=== PATIENT | male | born 1980 | race Caucasian/White ===

== ENCOUNTER 2018-09-14 13:04 | Outpatient (CLI) | payer OTHER ==
--- NOTE | 2018-09-14 15:31 | MRI ---
MRI LUMBAR SPINE WITHOUT CONTRAST: Date: 09/14/18 HISTORY: Acute left lumbar radiculopathy, low back pain, and left leg numbness. FINDINGS: The vertebral body heights and marrow signal are maintained. The conus medullaris ends at L1. There i s disc desiccation at L4-5 and L5-S1 levels with broad based disc bulges. There is increased T2 signa l in the posterior aspect of the L4-5 and L5-S1 disc consistent with annular tears. There is Grade I anterolisthesis of L5 over S1. There is moderate to severe left-sided neural foraminal stenosis at L5 -S1 with probable impingement of the exiting left nerve root at L5-S1. There are facet hypertrophic c hanges at L4-5 and L5-S1 levels. The paraspinal musculature is normal. IMPRESSION: 1. Degenerative disc disease with broad based disc bulges at L4-5 and L5-S1 levels, and associated a nnular tears. 2. Grade I anterolisthesis of L5-S1 level with bilateral neural foraminal stenosis, left greater jose n right, with probable impingement of the exiting left nerve root. POS: [facility]
== END 2018-09-14 13:05 | disposition home or self-care (01) ==
LOC: BICMRI 13:04
PROVIDERS: ATTEND General Practice
DX: M51.16 Intervertebral disc disorders with radiculopathy, lumbar region (principal); M51.17 Intervertebral disc disorders with radiculopathy, lumbosacral region; M48.061 Spinal stenosis, lumbar region without neurogenic claudication
CPT/HCPCS: 72148

== ENCOUNTER 2018-12-13 15:18 | Outpatient (CLI) | payer OTHER ==
--- NOTE | 2018-12-13 19:30 | RAD ---
XR Lumbar Spine Min 4 View History: [Left leg and back pain. M [age]] Comparison: MRI lumbar spine September 14, 2018 Findings: There is acute fracture. 5 nonrib-bearing lumbar type vertebra. Paraspinal soft tissues are unremarkable. Mild degenerative narrowing of the L4-5 and L5-S1 disc space. Grade 1 L5 over S1 anterolisthesis, joshua roximate 5 mm. Bilateral L5 pars interarticularis defects. 2 mm anterior translation with flexion. Impression: Bilateral L5 pars interarticularis defects with grade 1 anterolisthesis and translation w ith flexion.
== END 2018-12-13 15:19 | disposition home or self-care (01) ==
LOC: TBSIIMAG 15:18
PROVIDERS: ATTEND Neurological Surgery
DX: M51.26 Other intervertebral disc displacement, lumbar region (principal); M48.061 Spinal stenosis, lumbar region without neurogenic claudication; M43.16 Spondylolisthesis, lumbar region
CPT/HCPCS: 72110

== ENCOUNTER 2018-12-28 08:25 | Outpatient (CLI) | payer OTHER ==
--- NOTE | 2018-12-28 09:37 | CT ---
CT LUMBAR SPINE WITHOUT CONTRAST: INDICATIONS: 38-year-old male with low back pain radiculopathy and spondylosis listhesis. COMPARISON: Lumbar spinal radiograph dated December 13, 2018 TECHNIQUE: Multiple CT images were obtained of the lumbar spine without contrast. Axial, coronal, and sagittal r eformatted images were constructed from the raw data. FINDINGS: Visualized retroperitoneal and paravertebral soft tissues: There is a 2 mm nonobstructing calculus wi thin the superior pole of the left kidney. No lymphadenopathy or free fluid is identified. Spinal alignment: There is grade 1 anterolisthesis of L5 on S1 with bilateral pars defects at L5. Spinal instrumentation or postsurgical change: None At L5-S1, there is a loss of the normal disc space height. There is a broad-based pseudobulge in lisa tion to the grade 1 anterolisthesis inducing at least moderate left and [id number] right neural foraminal narrowing.. At L4-5, there is a mild, asymmetric to the right broad-based bulge that induces at least mild right neural foraminal narrowing. At L3-4, there is no appreciable central canal or neuroforaminal narrowing. At L2-3, there is no appreciable central canal or neuroforaminal narrowing. At L1-L2, there is no appreciable central canal or neuroforaminal narrowing. At T12-L1, there is no appreciable central canal or neuroforaminal narrowing. IMPRESSION: 1. Bilateral pars defects at L5 with grade 1 anterolisthesis of L5 on S1. There is mild to moderate right and moderate left neural foraminal narrowing. 2. Mild right neural foraminal narrowing at L4-5 due to a broad-based bulge. 3. Left nephrolithiasis
== END 2018-12-28 08:26 | disposition home or self-care (01) ==
LOC: BICCT 08:25
PROVIDERS: ATTEND Surgery
DX: M43.16 Spondylolisthesis, lumbar region (principal); M51.16 Intervertebral disc disorders with radiculopathy, lumbar region; M43.17 Spondylolisthesis, lumbosacral region; M48.061 Spinal stenosis, lumbar region without neurogenic claudication; N20.0 Calculus of kidney
CPT/HCPCS: 72131

== ENCOUNTER 2019-12-28 14:38 | Outpatient (CLI) | payer OTHER ==
--- NOTE | 2019-12-28 15:14 | RAD ---
TWO VIEWS LUMBOSACRAL SPINE: 12/28/19 COMPARISON: CT lumbar spine 12/28/18. HISTORY: Radiculopathy. Low back surgeries. Follow-up exam. COMPARISON: Lumbar spine radiograph 12/13/18. FINDINGS: Two views lumbosacral spine shows the patient to be status post fusion of L5 and S1 with bilateral pe dicle screws. Disc spacer is seen in the intervening disc space. No perihardware lucency is seen. The re is grade I anterolisthesis of L4 on L5, unchanged. Laminectomies have been performed at L5-S1. IMPRESSION: Postsurgical changes at L5-S1 without evidence of complication. POS: [facility]
== END 2019-12-28 14:39 | disposition home or self-care (01) ==
LOC: TBSIIMAG 14:38
PROVIDERS: ATTEND Emergency Medicine
DX: M54.16 Radiculopathy, lumbar region (principal); M43.16 Spondylolisthesis, lumbar region; Z98.1 Arthrodesis status
CPT/HCPCS: 72100

== ENCOUNTER 2020-05-21 10:44 | Outpatient (CLI) | payer OTHER ==
--- NOTE | 2020-05-21 11:41 | RAD ---
2 views of the lumbar spine: 05/21/2020 COMPARISON: 12/28/2019 HISTORY: Spondylosis, prior lumbar spine surgery FINDINGS: Bilateral pedicle screws are present at the L5 and S1 levels with a intervertebral disc dev ice at L5-S1 and bilateral vertically oriented interlocking rods. The configuration of the postoperative hardware is unchanged when compared to the prior exam. Anterolisthesis at the L5-S1 lev el is noted measuring approximately 6 mm, slightly less conspicuous than on the prior exam. No acute fracture. IMPRESSION: Postoperative changes of the lower lumbar spine. No acute osseous abnormality.
== END 2020-05-21 10:45 | disposition home or self-care (01) ==
LOC: TBSIIMAG 10:44
DX: M43.16 Spondylolisthesis, lumbar region (principal); Z98.890 Other specified postprocedural states
CPT/HCPCS: 72100

== ENCOUNTER 2021-06-10 11:08 | Outpatient (CLI) | payer OTHER | END 2021-06-10 11:09 | disposition home or self-care (01) | LOC: TBSIIMAG 11:08 | PROVIDERS: ATTEND Emergency Medicine | DX: M43.26 Fusion of spine, lumbar region (principal); Z98.890 Other specified postprocedural states | CPT/HCPCS: 72100 ==